=== PATIENT | female | born 1975 | race Hispanic/Latino ===

== ENCOUNTER 2021-11-08 12:10 | Day surgery (SDC) | payer MEDICAID ==
[2021-11-04 15:30] VITALS: BP 144/84
[~2021-11-08] VITALS: Ht 160 cm; Wt 79.3 kg
[2021-11-08] VITALS (15 sets, daily range): BP systolic 133–154; BP diastolic 81–97
[~2021-11-08 12:10] MED LIST: MULT-1367 PO
[2021-11-08] MEDS ORDERED: LACTATED RINGERS 1000ML 1,000 ML IV ONE (12:24)
[2021-11-08] MEDS: CEFTRIAXONE 1G VIAL IVP SCH ×2 (12:57→13:45)
[2021-11-08] MEDS ORDERED: PROPOFOL 10 MG/ML 20ML VIAL IV ONE (13:10)
[2021-11-08] MEDS ORDERED: FENTANYL CITRATE PF 50 MCG/1 ML 2ML VIAL ONE (13:10)
[2021-11-08] MEDS ORDERED: LIDOCAINE PF 100MG/5ML (2%) SYRINGE 5ML ONE (13:10)
[2021-11-08] MEDS ORDERED: IOHEXOL-350 50ML VIAL IV ONE (13:35)
[2021-11-08] MEDS ORDERED: GLYCOPYRROLATE 1 MG/5 ML SYRINGE ONE (13:57)
[2021-11-08] MEDS ORDERED: MIDAZOLAM HCL 1 MG/ML 2ML VIAL ONE (14:13)
[2021-11-08] MEDS ORDERED: KETOROLAC 30MG VIAL (30MG/ML) ONE (14:17)
[2021-11-08] MEDS ORDERED: ONDANSETRON 4MG INJ ONE (14:18)
[2021-11-08] MEDS ORDERED: PHENYLEPHRINE HCL 10 MG/ML 1ML VIAL IV ONE (14:45)
[2021-11-08] MEDS ORDERED: 0.9%NACL 10ML VIAL ONE (14:45)
[2021-11-08] MEDS ORDERED: MEPERIDINE-PF 25 MG/ML SYG ONE ×2 (15:24→15:33)
== END 2021-11-08 16:50 ==
LOC: DAH 12:10
PROVIDERS: ATTEND Urology
DX: N20.0 Calculus of kidney (principal); N23 Unspecified renal colic; Z79.899 Other long term (current) drug therapy; Z20.822 Contact with and (suspected) exposure to COVID-19
CPT/HCPCS: 50590; 52332; 74420; 87635; A4215; A4221; A4222; A4223; A4344; A4358; A4510; A4600; A4663; A6260; C1758; C1769; C2617; C9803; J0696; J1885; J2175 ×2; J2250; J2370; J2405; J3010; J3490 ×4; J7120 ×2; J2001; J2704; Q9967

== ENCOUNTER → 2021-12-07 | Outpatient (CLI) | payer MEDICAID | END | disposition home or self-care (01) | LOC: RAH 13:45 | PROVIDERS: ATTEND Urology | DX: N20.0 Calculus of kidney (principal); Z96.0 Presence of urogenital implants | CPT/HCPCS: 74018 ==

== ENCOUNTER → 2025-05-22 | Outpatient (CLI) | payer OTHER ==
--- NOTE | 2025-05-22 14:11 | HMCIMG ---
DEXA BONE DENSITY SURVEY HISTORY: Pulmonary hypertension COMPARISON: None FINDINGS: Bone densitometry study was performed. Bone mineral density of the lumbar spine is 0.95 gram per centimeter square which corresponds to a T score of -0.8 and a Z score of -0.1. Bone mineral density of the left hip is 0.991 grams per centimeter square which corresponds to a T score of 0.2 and a Z score of 0.7. IMPRESSION: 1. Normal bone mineral density of the lumbar spine and left hip.
== END | disposition home or self-care (01) ==
LOC: RAH 13:21
PROVIDERS: ATTEND Surgery
DX: E21.0 Primary hyperparathyroidism (principal)
CPT/HCPCS: 77080